=== PATIENT | female | born 1980 | race African-American/Black ===

== ENCOUNTER 2020-03-27 01:02 | Emergency (ER) | payer OTHER, SELFPAY ==
--- NOTE | ~2020-03-27 | CT_ITS ---
EXAMINATION: CTA chest PE abdomen pel DATE: 03/27/2020 03:53 INDICATION: Shortness of breath. Right abdominal pain. TECHNIQUE: Computed tomography angiography (CTA) of the chest was performed with 100 mL Omnipaque-350 intravenous contrast timed to evaluate the pulmonary arteries. Coronal maximum intensity projection 3D-reconstructions were created by the technologist. Computed tomography (CT) of the abdomen and pelv is was performed with intravenous contrast. Automated exposure control and iterative reconstruction t echnique were employed. The dose-length product was 1789.12 mGy-cm. COMPARISON: Ultrasound abdomen 06/07/2018 FINDINGS: CTA chest: The lungs demonstrate moderate dependent atelectasis. No pleural effusion. The heart size is normal. No pericardial effusion. There is no pulmonary embolus. CT abdomen and pelvis: The liver, gallbladder, spleen, pancreas, adrenal glands, and kidneys are norm al. There is a small sliding hernia. There are changes of gastric sleeve procedure. There are no dila caleb loops of bowel. The appendix is normal. There are no pathologically enlarged lymph nodes. There i s no free intraperitoneal fluid. There is expected inflammation/scarring at port sites in the anterio r abdominal wall. There is mild thoracolumbar spondylosis. IMPRESSION: 1. No pulmonary embolus. Sensitivity is mildly decreased by motion artifact and suboptimal contrast o pacification. 2. Small sliding hiatal hernia. Changes of gastric sleeve procedure. Reviewed, dictated and finalized at location A. IMPRESSION: 1. No pulmonary embolus. Sensitivity is mildly decreased by motion artifact and suboptimal contrast opacification. 2. Small sliding hiatal hernia. Changes of gastric sleeve procedure.
[2020-03-27 01:14] VITALS: BP 121/74; PULSE 108; RESP 17; TEMP 37.2; O2SAT 100
--- NOTE | 2020-03-27 01:57 | ECG_ITS ---
Measurements Intervals [place] Rate: 96 P: 47 NH: 151 QRS: 36 QRSD: 82 T: 56 QT: 333 QTc: 421 Interpretive Statements SINUS RHYTHM NONSPECIFIC T-WAVE ABNORMALITY- DIFFUSE LEADS BASELINE ARTIFACT- I, II BORDERLINE ECG Electronically Signed On 03-27-2020 6:43:46 CDT by Yuri Capellan D.O.
[2020-03-27 02:00] VITALS: BP 114/80; PULSE 107; RESP 100; O2SAT 100
--- NOTE | 2020-03-27 02:09 | ED.ABDPAIN ---
HPI - Abdominal Pain General Chief Complaint: Abdominal Pain Stated Complaint: right abd pain s/p surgery 3 wks ago Time Seen by Provider: 03/27/20 02:03 Source: patient Mode of arrival: ambulatory Limitations: no limitations History of Present Illness HPI narrative: This patient is a 39 year old female who presents for evaluation of right side abdominal pain x 2 days. She reports sharp constant pain that has been present for 2 days. She feels the pain more with inspiration. She states she has been taking gas medication without relief. She denies associated nausea, vomiting, fever or chills. She also denies urinary complaints. She had a gastric sleeve procedure at [facility] on 03/04/[address] Jenkins. She was unable to speak with Dr. jenkins yesterday regarding her pain. Onset (ago): day(s) Related Data Home Medications Medication Instructions Recorded Confirmed spironolactone 100 mg tablet 100 mg PO DAILY 08/15/19 03/26/20 Allergies Allergy/AdvReac Type Severity Reaction Status Date / Time No Known Allergies Allergy Verified 03/27/20 01:03 Review of Systems Review of Systems: All systems reviewed & are unremarkable except as noted in HPI and below Constitutional: Constitutional: Denies chills and Denies fever(s) Cardiovascular: Cardiovascular: Denies chest pain Respiratory: Respiratory: Denies cough, Reports dyspnea and Denies wheezing Gastrointestinal: Gastrointestinal: Reports abdominal pain, Denies diarrhea, Denies nausea and Denies vomiting Genitourinary: Genitourinary: Denies hematuria, Denies nocturia and Denies dysuria Musculoskeletal: Musculoskeletal: Reports back pain [facility] Surgical History Surgical History (Updated 03/27/20 @ 04:54 by Zahida Arauz MD) H/O abdominoplasty Status post bariatric surgery Social History Social History Smoking status: Never smoker Second hand tobacco smoke exposure: No Alcohol intake: current Exam Const: General: no acute distress and alert Orientation/consciousness: patient oriented x3 HENMT: Head: normocephalic and atraumatic Face and sinus: face symmetric Throat: uvula midline Eyes: EOM: EOMs intact bilaterally Chest: Chest palpation & inspection: normal inspection of the chest Resp: Effort & Inspection: normal respiratory effort, no retractions and no use of accessory muscles Auscultation: clear to auscultation bilaterally Cardio: Rate: tachycardic Rhythm: regular rhythm Heart sounds: no murmurs GI: GI Palp: Yes Soft to palpation and Yes Tenderness to palpation present (GI) (mild TTP RLQ, no guarding no rebound) Skin: General skin exam: normal color Rashes: no rashes Psych: Mental Status: mental status grossly normal Affect: normal affect Course Reevaluation(s) Reevaluation #1: I have discussed with patient that her CT did not show any acute findings other than atelectasis. She will start incentive spirometer and follow up with doctor. I discussed if any discrepancy on CT found she will be notified when radiologist perform final reading Date: 03/27/20 Time: 04:49 Vital Signs Vital signs: Vital Signs Temperature 99.0 F 03/27/20 01:14 Pulse Rate 108 H 03/27/20 01:14 Respiratory Rate 17 03/27/20 01:14 Blood Pressure 121/74 03/27/20 01:14 Pulse Oximetry 100 03/27/20 01:14 Temperature 99.0 F 03/27/20 01:14 Pulse Rate 98 03/27/20 05:23 Respiratory Rate 17 03/27/20 05:23 Blood Pressure 117/78 03/27/20 05:23 Pulse Oximetry 99 03/27/20 05:23 MDM - Abdominal Pain Lab Data Attestation: I reviewed the patient's lab results. Result diagrams: 03/27/20 02:21 03/27/20 02:21 Labs: Lab Results 03/27/20 03/27/20 03/27/20 Range/Units 02:21 02:21 02:21 WBC 7.8 (4.5-10.0) K/mm3 RBC 4.05 L (4.2-5.4) M/mm3 Hgb 11.5 L (12.0-15.0) g/dL Hct 34.5 L (37.0-47.0) % MCV 85.2 (80-1
[2020-03-27 02:29] LABS: Basophils Absolute Auto 0.1 K/mm3 (0.0-0.1); Basophils Percent Auto 0.8 % (0.2-1.2); Eosinophils Absolute Auto 0.1 K/mm3 (0-0.3); Eosinophils Percent Auto 1.3 % (0-4.4); Hematocrit 34.5 % (37.0-47.0); Hemoglobin 11.5 g/dL (12.0-15.0); Immature Granulocyte Absolute 0.03 K/mm3 (0.00-0.031); Immature Granulocyte Percent A 0.4 % (0-0.5); Lymphocytes Absolute Auto 1.63 K/mm3 (0.9-3.2); Lymphocytes Percent Auto 20.9 % (18.3-44.2); Mean Corpuscular HGB Conc 33.3 g/dl (32-36); Mean Corpuscular Hemoglobin 28.4 pg (26-34); Mean Corpuscular Volume 85.2 fl (80-100); Mean Platelet Volume 9.7 fl (7.4-10.4); Monocytes Absolute Auto 0.6 K/mm3 (0.1-0.6); Monocytes Percent Auto 7.9 % (2.6-8.5); Neutrophils Absolute Auto 5.4 K/mm3 (1.3-6.7); Neutrophils Percent Auto 68.7 % (45.5-73.1); Platelet Count Result 345 k/mm3 (150-375); Red Blood Count 4.05 M/mm3 (4.2-5.4); Red Cell Distribution Width 14.1 % (11.5-14.5); White Blood Count 7.8 K/mm3 (4.5-10.0)
[2020-03-27 02:35] LABS: Add Urine Microscopic? YES; Appearance Urine Clear (Clear); Bilirubin Urine Negative (Negative); Blood Urine 1+ (Negative); Color Urine Yellow (Yellow); Glucose Urine UA Negative (Negative); Ketones Urine Negative (Negative); Leukocyte Esterase Ur Negative LEU/UL (Negative); Mucus Urine Heavy /lpf; Nitrate Urine Negative (Negative); Protein Urine Negative (Negative); Squamous Epithelial Cell Urine Occasional /hpf (Few); Urobilinogen Urine Negative mg/dL (<2.0)
[2020-03-27 02:39] LABS: INR 1.1; Prothrombin Time 13.5 Seconds (11.1-14.7)
[2020-03-27 02:40] LABS: Partial Thromboplastin Time 31.5 SECONDS (22.3-36.8)
[2020-03-27] MEDS: LACTATED RINGERS 1,000 ML 999 ML IV CONT (02:51)
[2020-03-27 02:55] LABS: Alanine Aminotransferase 23 U/L (4-35); Albumin Level 4.1 g/dL (3.5-5.1); Alkaline Phosphatase 83 U/L (38-126); Anion Gap 7 mmol/L (8-16); Aspartate Amino Transferase 25 U/L (14-36); Bilirubin,Total 0.5 mg/dL (0.2-1.3); Blood Urea Nitrogen 10 mg/dL (7-17); Carbon Dioxide 27 mmol/L (22-30); Chloride 102 mmol/L (98-107); Estimated CRCL calculation 116 ml/min; Estimated Glomerular Filt Rate > 60; Glucose 107 mg/dL (65-105); Lactic Acid Reflex 0.6 mmol/L (0.7-2.1); Lipase 102 U/L (23-300); Potassium 3.7 mmol/L (3.4-5.0); Sodium 136 mmol/L (137-145)
[2020-03-27 02:58] LABS: Specific Grav Ur 1.031 (1.001-1.035)
[2020-03-27 05:23] VITALS: BP 117/78; PULSE 98; RESP 17; O2SAT 99
== END 2020-03-27 05:25 | disposition home or self-care (01) ==
PROVIDERS: Emergency Provider General Practice; PCP Family Medicine
DX: R10.9 Unspecified abdominal pain (principal); J98.11 Atelectasis; Z98.84 Bariatric surgery status; R94.31 Abnormal electrocardiogram [ECG] [EKG]
CPT/HCPCS: 36415; 71275; 74177; 80053; 81001; 81025; 83605; 83690; 85025; 85610; 85730; 93005; 96360; 99284; J7120; Q9967

== ENCOUNTER 2021-08-06 18:03 | Emergency (ER) | payer BC, SELFPAY ==
[2021-08-06 18:12] VITALS: BP 133/78; PULSE 116; RESP 16; TEMP 37.4; O2SAT 99
[2021-08-06 18:18] VITALS: BP 133/78; PULSE 116; RESP 16; TEMP 37.4; O2SAT 99
--- NOTE | 2021-08-06 18:59 | ED.URI ---
HPI - URI/Sore Throat General Chief Complaint: Upper Respiratory Infection Stated Complaint: Cough,Headache Time Seen by Provider: 08/06/21 18:49 Source: patient and RN notes reviewed Mode of arrival: ambulatory Limitations: no limitations History of Present Illness HPI Narrative: Patient presents today complaining of 2-day history of headache, body aches, fatigue, and mild cough. She has had multiple exposures to COVID-19 at work. Denies fever, congestion, rhinorrhea, sore throat, nausea, vomiting, diarrhea. She has tried no medication for symptoms prior to arrival. MD elicited complaint: other (Headache, body aches) Related Data Home Medications Medication Instructions Recorded Confirmed spironolactone 100 mg tablet 100 mg PO DAILY 08/15/19 03/26/20 drospirenone-ethinyl estradiol 1 tablet PO DAILY 08/06/21 08/06/21 [Dorinda] levothyroxine [Synthroid] 08/06/21 valacyclovir 500 mg PO DAILY 08/06/21 08/06/21 Allergies Allergy/AdvReac Type Severity Reaction Status Date / Time No Known Allergies Allergy Verified 08/06/21 18:11 Review of Systems Review of Systems: CONSTITUTIONAL: Denies fever, chills, or sweats.+ Body aches, fatigue EYES: Denies visual changes, redness, or discharge. ENT: Denies rhinorrhea, congestion, sore throat, or otalgia. CARDIOVASCULAR: Denies chest pain, palpitations, or edema. RESPIRATORY: Denies dyspnea.+ Cough GASTROINTESTINAL: Denies abdominal pain, nausea, vomiting, or diarrhea. GENITOURINARY: Denies dysuria or hematuria. SKIN: Denies rash, itching, or wounds. MUSCULOSKELETAL: Denies back pain, joint pain, or myalgia. NEUROLOGIC: Denies numbness, tingling, or weakness.+ Headache PSYCH: Denies depression or anxiety. [facility] Surgical History Surgical History H/O abdominoplasty Status post bariatric surgery Family History Family History Father Hypertension Family history of diabetes mellitus in first degree relative Mother Hypertension Family history of diabetes mellitus in first degree relative Other Family history of gout Family history of malignant neoplasm Family history of thyroid disease Social History Social History Smoking status: Never smoker Second hand tobacco smoke exposure: No Alcohol intake: current Comments At time of signature, I have reviewed and agree with nursing past medical, surgical, social and family history unless otherwise noted. Please see nursing chart for further information. There is no relevant family history pertinent to the presenting complaint Exam Narrative: GENERAL: Well-appearing, well-nourished, and in no acute distress. HEAD: Normocephalic, atraumatic. EYES: EOMI. No redness or drainage. Conjunctivae normal. ENT: Mucous membranes pink and moist. Nares clear. No rhinorrhea. TMs normal bilaterally. Throat normal. Uvula midline. NECK: Normal AROM. Supple. No lymphadenopathy. CHEST: No respiratory distress. Clear to auscultation. HEART: Regular rate and rhythm. No murmur appreciated. Normal peripheral pulses. EXTREMITIES: Normal range of motion. No edema. SKIN: Warm, dry, no rash. Capillary refill normal. Normal skin turgor. NEURO: No focal deficits. Alert and oriented x3. Gait steady. PSYCH: Normal affect. No signs of depression or anxiety. Course Course Level of Care: Express Care Visit Vital Signs Vital signs: Vital Signs Temperature 99.3 F 08/06/21 18:12 Pulse Rate 116 H 08/06/21 18:12 Respiratory Rate 16 08/06/21 18:12 Blood Pressure 133/78 08/06/21 18:12 Pulse Oximetry 99 08/06/21 18:12 Temperature 99.3 F 08/06/21 18:18 Pulse Rate 116 H 08/06/21 18:18 Respiratory Rate 16 08/06/21 18:18 Blood Pressure 133/78 08/06/21 18:18 Pulse Oximetry 99 08/06/21 18:18 Reviewed. Pt has been instru
== END 2021-08-06 19:05 | disposition home or self-care (01) ==
PROVIDERS: Emergency Provider Nurse Practitioner; PCP Family Medicine
DX: B34.9 Viral infection, unspecified (principal); Z20.822 Contact with and (suspected) exposure to COVID-19; Z98.84 Bariatric surgery status; K21.9 Gastro-esophageal reflux disease without esophagitis; E03.9 Hypothyroidism, unspecified
CPT/HCPCS: 87426; 99213; C9803; G0463

== ENCOUNTER 2021-08-14 09:20 | Outpatient (CLI) | payer BC, SELFPAY ==
--- NOTE | ~2021-08-14 | XR_ITS ---
XR chest 2V DATE: 08/14/2021 09:36 INDICATION: Chest pain TECHNIQUE: PA and lateral views COMPARISON: 04/23/2020 CTA chest abdomen pelvis FINDINGS: Normal heart size. No hilar or mediastinal enlargement. No pulmonary infiltrate or consolid ation, pleural effusion or pulmonary vascular congestion or pneumothorax. Surgical clips, right upper quadrant, suggesting cholecystectomy. Thoracolumbar scoliosis. IMPRESSION: No active cardiopulmonary disease Reviewed, dictated and finalized at location A. 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
--- NOTE | 2021-08-14 09:43 | ECG_ITS ---
Measurements Intervals [place] Rate: 76 P: 67 ID: 142 QRS: 53 QRSD: 73 T: 49 QT: 375 QTc: 422 Interpretive Statements SINUS RHYTHM WITH SINUS ARRHYTHMIA BASELINE ARTIFACT- I, II, III, AVR, AVL, AVF NORMAL ECG Electronically Signed On 08-14-2021 9:59:50 FITTER TACKER by Yuri Capellan D.O.
== END 2021-08-14 09:21 | disposition home or self-care (01) ==
LOC: ANHIMG 09:23
PROVIDERS: PCP Family Medicine; Visit Provider Nurse Practitioner Family
DX: Z01.818 Encounter for other preprocedural examination (principal); I49.9 Cardiac arrhythmia, unspecified
CPT/HCPCS: 71046; 93005

== ENCOUNTER 2021-09-21 07:25 | Outpatient (CLI) | payer BC, SELFPAY ==
--- NOTE | ~2021-09-21 | MM_ITS ---
EXAMINATION: MM screening silvia BI w bebeto HISTORY: Baseline screening mammogram TECHNIQUE: Craniocaudal and mediolateral oblique 3-D tomosynthesis images were obtained and synthetic 2-D images were generated. CAD analysis was submitted and interpreted. COMPARISON: None, baseline BREAST PARENCHYMAL COMPOSITION: There are scattered areas of fibroglandular density. FINDINGS: There is no evidence of suspicious mass, calcification, or architectural distortion to sugg est malignancy in either breast. IMPRESSION: 1. No mammographic evidence of malignancy. 2. Recommend routine screening mammography in one year. BI-RADS Category 1: Negative Reviewed, dictated and finalized at location A. 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
== END 2021-09-21 07:26 | disposition home or self-care (01) ==
LOC: ANHIMG 07:26
PROVIDERS: PCP Family Medicine; Visit Provider Nurse Practitioner Family
DX: Z12.31 Encounter for screening mammogram for malignant neoplasm of breast (principal)
CPT/HCPCS: 77063; 77067

== ENCOUNTER → 2021-11-07 00:21 | Outpatient (CLI) | payer BC, SELFPAY ==
[2021-11-07 11:55] LABS: SARS-CoV-2 RNA PCR Negative
== END ==
PROVIDERS: PCP Family Medicine; Visit Provider Family Medicine
DX: Z41.9 Encounter for procedure for purposes other than remedying health state, unspecified (principal); Z20.822 Contact with and (suspected) exposure to COVID-19
CPT/HCPCS: C9803; U0003; U0005

== ENCOUNTER 2022-03-09 10:34 | Outpatient (CLI) | payer BC, SELFPAY ==
--- NOTE | ~2022-03-09 | XR_ITS ---
EXAMINATION: XR ankle LT min 3V DATE: 03/09/2022 10:52 INDICATION: Left ankle pain TECHNIQUE: Anteroposterior, lateral, mortise, and additional oblique view of the ankle were obtained. COMPARISON: None. FINDINGS: Bone alignment is normal. There is no fracture. A plantar calcaneal enthesophyte is noted. IMPRESSION: 1. No acute osseous abnormality. Reviewed, dictated and finalized at location A.
== END 2022-03-09 10:35 ==
LOC: MICIMG 10:37
PROVIDERS: PCP Nurse Practitioner Family; Visit Provider Nurse Practitioner Family
DX: M25.572 Pain in left ankle and joints of left foot (principal)
CPT/HCPCS: 73610

== ENCOUNTER 2022-09-11 18:39 | Emergency (ER) | payer OTHER, SELFPAY ==
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
[2022-09-11 18:44] VITALS: BP 158/106; PULSE 112; RESP 18; TEMP 37; O2SAT 100
--- NOTE | 2022-09-11 19:30 | PC.NURSE ---
First encounter w/ pt. Pt resting comfortably in bed, c-collar continued, updated pt on plan of care.
--- NOTE | 2022-09-11 19:52 | ECG_ITS ---
Measurements Intervals [place] Rate: 91 P: 40 CO: 120 QRS: 14 QRSD: 79 T: 1 QT: 335 QTc: 413 Interpretive Statements SINUS RHYTHM WITH SINUS ARRHYTHMIA BASELINE ARTIFACT MINIMAL VOLTAGE CRITERIA FOR LVH, CONSIDER NORMAL VARIANT NONSPECIFIC T-WAVE ABNORMALITY BORDERLINE ECG COMPARED TO ECG 08/14/2021 09:55:07 T-WAVE ABNORMALITY NOW PRESENT Electronically Signed On 09-12-2022 14:41:47 FAMILY MEMBER CARETAKER by Arron Sarabia M.D.
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
[2022-09-11] MEDS: methocarbamoL 750 MG TABLET 1500 MG PO (20:26)
[2022-09-11] MEDS: ACETAMINOPHEN 500 MG TABLET 1000 MG PO (20:26)
[2022-09-11 21:26] VITALS: BP 131/79; PULSE 77; RESP 18; TEMP 36.6; O2SAT 99
== END 2022-09-11 21:26 | disposition home or self-care (01) ==
PROVIDERS: Emergency Provider Emergency Medicine; PCP Family Medicine
DX: S39.92XA Unspecified injury of lower back, initial encounter (principal); R07.89 Other chest pain; E78.2 Mixed hyperlipidemia; E55.9 Vitamin D deficiency, unspecified; Z98.84 Bariatric surgery status; R94.31 Abnormal electrocardiogram [ECG] [EKG]; V49.40XA Driver injured in collision with unspecified motor vehicles in traffic accident, initial encounter
CPT/HCPCS: 70450; 71045; 72170; 93005; 99284; A9270

== ENCOUNTER 2023-09-22 16:28 | Emergency (ER) | payer BC, SELFPAY ==
[2023-09-22 16:39] VITALS: BP 135/87; PULSE 119; RESP 18; TEMP 38.7; O2SAT 100
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
== END 2023-09-22 17:15 | disposition home or self-care (01) ==
PROVIDERS: Emergency Provider Nurse Practitioner; PCP Family Medicine
DX: U07.1 COVID-19 (principal); R01.1 Cardiac murmur, unspecified; E78.2 Mixed hyperlipidemia; E55.9 Vitamin D deficiency, unspecified
CPT/HCPCS: 87426; 87804; 99213; G0463

== ENCOUNTER 2024-04-12 15:33 | Outpatient (CLI) | payer OTHER, SELFPAY ==
--- NOTE | ~2024-04-12 | MM_ITS ---
EXAMINATION: MM screening silvia BI w bebeto HISTORY: Screening mammogram TECHNIQUE: Craniocaudal and mediolateral oblique 3-D tomosynthesis images were obtained and synthetic 2-D images were generated. CAD analysis was submitted and interpreted. COMPARISON: 09/21/2021 BREAST PARENCHYMAL COMPOSITION:Not Dense. There are scattered areas of fibroglandular density. FINDINGS: No suspicious mass, calcification, or architectural distortion are identified in either dago ast to suggest malignancy. There has been no suspicious interval change. IMPRESSION: No mammographic evidence of malignancy. Recommend routine screening mammography in one year. BI-RADS Category 1: Negative Reviewed, dictated and finalized at location .
== END 2024-04-12 15:34 | disposition home or self-care (01) ==
LOC: ANHIMG 15:34
PROVIDERS: PCP Family Medicine; Visit Provider Nurse Practitioner Family
DX: Z12.31 Encounter for screening mammogram for malignant neoplasm of breast (principal)
CPT/HCPCS: 77063; 77067

== ENCOUNTER 2024-05-16 08:55 | Outpatient (CLI) | payer OTHER, SELFPAY ==
--- NOTE | ~2024-05-16 | XR_ITS ---
XR shoulder LT min 2V Ordering provider: Blessing Krause NP History: . M54.2 - Cervicalgia . Comparison: None. FINDINGS: BONES: No acute fracture or dislocation. JOINT SPACES: The acromioclavicular joint is normal. The glenohumeral joint is normal. SOFT TISSUES: Normal. IMPRESSION: No acute osseous abnormality left shoulder. Reviewed, dictated and finalized at location A.
--- NOTE | ~2024-05-16 | XR_ITS ---
[id number] Ordering provider: Blessing Krause NP History: . M54.2 - Cervicalgia . Comparison: None. FINDINGS: VERTEBRAL BODIES: Normal height and alignment. No visible fracture or subluxation. The dens is intact . DISK SPACES: Narrowing of the disc C4-C5 is (. PARASPINOUS SOFT TISSUES: No prevertebral soft tissue swelling. IMPRESSION: No acute osseous abnormality cervical spine. Multilevel degenerative disc disease . Reviewed, dictated and finalized at location A.
== END 2024-05-16 08:56 | disposition home or self-care (01) ==
LOC: MICIMG 08:56
PROVIDERS: PCP Family Medicine
DX: M25.512 Pain in left shoulder (principal); M50.30 Other cervical disc degeneration, unspecified cervical region
CPT/HCPCS: 72040; 73030

== ENCOUNTER 2024-07-31 17:45 | Emergency (ER) | payer OTHER, SELFPAY ==
[2024-07-31 18:02] VITALS: BP 120/74; PULSE 103; RESP 16; TEMP 37.6; O2SAT 100
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
== END 2024-07-31 18:57 | disposition home or self-care (01) ==
PROVIDERS: Emergency Provider Nurse Practitioner Family; PCP Family Medicine
DX: M54.50 Low back pain, unspecified (principal); R01.1 Cardiac murmur, unspecified; E78.2 Mixed hyperlipidemia; E55.9 Vitamin D deficiency, unspecified; Z86.16 Personal history of COVID-19
CPT/HCPCS: 99213; G0463

== ENCOUNTER 2025-06-04 00:44 | Day surgery (SDC) | payer OTHER, SELFPAY ==
[2025-05-23 09:50] VITALS: BMI 26.4
--- OUTSIDE RECORDS SUMMARY | 2025-06-04 00:46 | XMS_ITS | Clinical Summary ---
Author Organization [facility] Address [address] [place] [address] Care Team Providers Care Clinical Nursing Manager Name Role Phone Unavailable Primary Care Provider Unavailabl e Source Comments [facility],non-owned Affiliates and Associated Physician Practices is amultiple site organization consisting of ambulatory clinics and hospital sitesin [place], [place], [place] and [place]. This disclosure is being madepursuant to the Care Everywhere program and may not contain all information available regarding this patient. Last updated 18.[facility] Social History Tobacco Use Types Packs/Day Years Used Date Smoking Tobacco: Never Assessed Comments Unknown Sex and Gender Information Value Date Recorded Sex Assigned at Not on file Legal Sex Female 12:00 PM CDT Gender Identity Not on file Sexual Orientation Not on file Plan of Treatment Health Maintenance Due Date Last Done Comments COLOGUARD (AGES 45-75) - COL ON CA SCREENING 1979 COLON MONITORING 1979 COLONOSCOPY - COLON CA SCREENING 1979 CT COLONOGRAPHY - COLON CA SCREENING 1979 Colorectal Cancer Screening 1979 FIT - COLON CA SCREENING 1979 FLEX SIG - COLON CA SCREENING 1979 LIPID TESTING 1979 MAMMOGRAM 1979 HIV SCREENING 1994 HEPATITIS C SCREENING 05/24/1997 DTAP/TDAP/TD VACCINES (1 - Tdap) 1998 HEPATITIS B VACCINE (1 of 3 - 19+ 3-dose series) 1998 DEPRESSION SCREENING 07/25/2024 COVID-19 VACCINE ( - 2023-2 5 season) 2025 INFLUENZA VACCINE (#1) 2025 ZOSTER VACCINE (1 of 2) 2029 HIB VACCINE Aged Out No longer eligi ble based on patient's age to complete this topic HPV VACCINE Aged Out No longer eligi ble based on patient's age to complete this topic MENINGOCOCCAL (Group B) VACC INE SHARED DECISION-MAKING Aged Out No longer eligibl e based on patient's age to complete this topic MENINGOCOCCAL GROUPS A/C/Y/W VACCINE Aged Out No longer eligible b ased on patient's age to complete this topic PNEUMOCOCCAL VACCINE Aged Out No long er eligible based on patient's age to complete this topic
--- OUTSIDE RECORDS SUMMARY | 2025-06-04 00:46 | XMS_ITS | Clinical Summary ---
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 09/22/2019 Active DULoxetine (CYMBALTA) 60 mg Capsule, Delayed Release(E.C.) Take 60 mg by mouth daily. 08/16/2019 Active ergocalciferol, vitamin D2, (VITAMIN D ORAL) Take 2 Capsules by mouth daily. Active omeprazole (PriLOSEC) 40 mg Capsule, Delayed Release(E.C.) Take 1 Capsule (40 mg) by mouth daily. 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 Gender Identity Not on file Sexual Orientation Not on file Last Filed Vital Signs Vital Sign Reading Time Taken Comments Blood Pressure 132/83 03/05/2020 12:00 PM CDT Pulse 77 03/05/2020 12:00 PM CDT Temperature 37.1 C (98.8 F) 03/05/2020 12:00 PM CDT Respiratory Rate 20 03/05/2020 5:49 AM CDT Oxygen Saturation 97% 03/05/2020 5:49 AM CDT Inhaled Oxygen Concentration - - Weight 88.9 kg (196 lb) 03/04/2021 2:15 PM CDT Height 165.1 cm (5' 5) 03/04/2021 2:15 PM CDT Body Mass Index 32.62 03/04/2021 2:15 PM CDT Plan of Treatment Health Maintenance Due Date Last Done Comments Pre-Diabetes and Diabetes Screening 1979 DTAP/TDAP/TD VACCINES (1 - Tdap) 1998 HEPATITIS B VACCINES (1 of 3 - 19+ 3-dose series) 1998 HPV/Cotest (21-29) 2000 HPV/Cotest (30-65) 2009 BREAST CANCER SCREENING 2019 CERVICAL CANCER SCREENING 11/06/2023 PAP SMEAR 11/06/2023 11/05/2020 COLORECTAL SCREENING 2024 Colorectal Cancer Screening 2024 FIT-DNA Q 3 years 2024 FIT/FOBT Q 1 year 2024 Flex Sig/CT Colonography Q 5 years 2024 INFLUENZA VACCINE (#1) 2025 HPV VACCINES Aged Out No longer eligi ble based on patient's age to complete this topic Medical Devices Implanted Type Area Cannery Worker Device Identifier Shelf Expiration Date Model / Serial / Lot Endo Clip Ii 10mm [id number] - [id number] Implanted:Qty : 1 on 03/04/2020 by Villa Rawls DO at [facility] Clip N/A: Abdomen [employer] - [employer]EN [id number] 11/21/2024 [id number] / / [id number] Insurance [facility] BLUE ACCESS/TRUE BLUE PPO RX [employer] PLANS (INTERNAL) [facility] Advance Directives For more information, please contact: [phone] * Full Code (Latest Code Status on File) Date Activated Date Inactivated Comments 03/04/2020 4:42 PM 03/05/2020 4:11 PM * Full Code Date Activated Date Inactivated Comments 03/04/2020 10:53 AM 03/04/2020 4:42 PM Care Teams Machinist Mechanic Relationship Specialty Start Date End Date Ferny Doll MD [address] [place] [address] PCP - General Family Practice 02/14/20
--- OUTSIDE RECORDS SUMMARY | 2025-06-04 00:46 | XMS_ITS | Data Portability ---
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 Patient will come back in a year unless there are new symptoms. [email or web address] Not available 01/25/2024 10:12:37 01/29/2025 01/29/2025 Annual gynecological exam performed. Patient will come back in a year unless there are new symptoms. [email or web address] Not available 01/29/2025 09:41:07 Plan of Treatment Reminders Order Date Submit Date Provider Last Modified By Organization Details Last Modified Time Details Appointments None recorded. Lab hbcab (hepatitis B core Ab) igm, serum [address] [facility] (Lab), [address], [place], [address], 16:16:53 HBsAg (hepatitis B surface Ag), serum [address] [facility] (Lab), [address], [place], [address], 16:16:52 hepatitis C virus Ab, serum [address] [facility] (Lab), [address], [place], [address], 5 16:16:52 HIV 1+2 AB + HIV 1 p24 Ag, qualitative immunoassay , serum [address] [facility] (Lab), [address], [place], [address], 5 16:16:51 RPR (rapid plasma reagin), serum [address] [facility] (Lab), [address], [place], [address], 5 16:16:52 pap, IG + HR HPV - HPV regardless but if HPV is positive need subtyping 16,18/45 add gc/ct/trich [address] [facility] (Lab), [address], [place], [address], 5 16:16:53 hbcab (hepatitis B core Ab) igm, serum [address] [facility] (Lab), [address], [place], [address], 4 12:15:08 HBsAg (hepatitis B surface Ag), serum [address] [facility] (Lab), [address] [facility], [place], [address], 4 12:15:06 hepatitis C virus Ab, serum [address] [facility] (Lab), [address], [place], [address], 4 12:15:07 HIV 1+2 AB + HIV 1 p24 Ag, qualitative immunoassay , serum [address] [facility] (Lab), [address], [place], [address], 4 12:15:07 RPR (rapid plasma reagin), serum [address]23 [facility] (Lab), [address], [place], [address], 4 12:15:08 Referral gastroenter ologist referral [address] - Gastroenterol ogy, [address], [address], [place], [address], 5 10:12:00 Procedures None recorded. Surgeries None recorded. Imaging MAMMO, screening, digital, bilateral 2024 [facility], [address], [address], [place], [address], 5 04:02:10 MAMMO, screening, digital, bilateral 2023 024 [facility], [address], [address], [place], [address], 5 05:01:26 Medication Orders valacyclovi r 500 mg tablet 2024 025 [id number], [address], [place], [id number], 5 10:09:35 Slynd 4 mg (28) tablet 2024 [id number], [address], [place], [id number], 5 10:10:05 valacyclovi r 500 mg tablet 2023 024 [facility], [facility], [place], [address], 4 11:39:48 estradiol 0.01% (0.1 mg/gram) vaginal cream 2023 [address] [place] [address] [facility], [address] [place], [address], 5 09:42:30 Slynd 4 mg (28) tablet 2023 024 [facility], [address] [place], [address], 4 11:40:48 metronidazo le 500 mg tablet 2022 024 [facility] [place], [address], 4 10:15:23 estradiol 0.01% (0.1 mg/gram) vaginal cream [address] [facility] [address] [place], [address], 5 09:42:30 Patient TargetsNo targets recorded. Patient InstructionsNo instructions recorded. 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 for Referral Director Career Referral for Screening for malignant neoplasm of colon Referring Physician: Rosalie Momin RESIN FILTERER, Encounter Date: 01/29/2025 Results Created Date Observation Date Name Description Value Unit Range Abnormal Flag Note LastModifiedBy Organization Detail LastModifiedTime 05/06/2005/06/2023 CT/GC AND TRICH OMONA S VAGIN MARICEL (RRNA ), SWAB chlamydia trachomatis, PCR Negati ve negati ve Not Available [facility] (Lab) [address], [place], [address], 05/09/2023 10:26:55 05/06/20 23 05/06/2023 CT/GC AND TRICH OMONA S VAGIN MARICEL (RRNA ), SWAB neisseria gonorrhoeae, PCR Negati ve negati ve Not Available [facility] (Lab) [address], [place], [address], 05/09/2023 10:26:55 05/06/20 23 05/06/2023 CT/GC AND TRICH OMONA S VAGIN MARICEL (RRNA ), SWAB trichomonas vaginalis ribosomal RNA (rrna) Negati ve negati ve Not Available [facility] (Lab) [address] [facility], [place], [address], 05/09/2023 10:26:55 05/06/20 23 05/06/2023 VAGIN ITIS/ VAGIN OSIS, DNA PROBE cherelle sp. detection, direct probe Negati ve negati ve Not Available [facility] (Lab) [address] [facility], [place], [address], 05/09/2023 10:26:56 05/06/2005/06/2023 VAGIN ITIS/ VAGIN OSIS, DNA PROBE gardnerella vag. detection, direct probe Negati ve negati ve Not Available [facility] (Lab) [address] [facility], [place], [address], 05/09/2023 10:26:56 05/06/20 23 05/06/2023 VAGIN ITIS/ VAGIN OSIS, DNA PROBE trichomonas vag. detection, direct probe Negati ve negati ve Not Available [facility] (Lab) [address] [facility], [place], [address], 05/09/2023 10:26:56 01/25/20 24 01/25/2024 HEPAT ITIS B SURFA CE ANTIG EN hepatitis B surface antigen Non-re active non-re active This assay was perfo rmed using [employer] ratio n reage nts and test kits. Value s obtai payal with other assay metho ds or kits canno t be used inter mark eably . Not Available [facility] (Lab) [address] [facility], [place], [address], 01/27/2024 12:15:06 01/25/20 24 01/25/2024 HEPAT ITIS C ANTIB EWA SCREE N, REFLE X TO CONFI RMATI ON hepatitis C antibody Non-re active non-re active Antib odies to HCV Not Detec caleb, does not exclu de the possi bilit y of expos ure to HCV. Not Available [facility] (Lab) [address] [facility], [place], [address], 01/27/2024 12:15:07 01/25/20 24 01/25/2024 HIV 1/2 ANTIG EN/AN TIBOD Y, REFLE X CONFI RMATI ON HIV antigen/anti body Nonrea ctive nonrea ctive HIV-1 antig en and HIV-1 /HIV- 2 antib odies were not detec caleb. No labor atory evide nce of HIV infec tion. Not Available [facility] (Lab) [address] [facility], [place], [address], 01/27/2024 12:15:07 01/25/20 24 01/25/2024 RPR SCREE N, REFLE X TITER /CONF IRMAT ION RPR screen Nonrea ctive nonrea ctive Not Available [facility] (Lab) [address] [facility], [place], [address], 01/27/2024 12:15:08 01/25/20 24 01/25/2024 HEPAT ITIS B CORE, IGM hepatitis B core IgM antibody Non-re active non-re active IgM anti- HBc not detec caleb. Does not exclu de the possi bilit y of expos ure to or infec tion with HBV. Not Available [facility] (Lab) [address] [place], [address], 01/27/2024 12:15:08 01/25/20 24 01/25/2024 IMAGE GUIDE D PAP AND HPV REGAR DLESS image guided Pap, HPV regardless of Pap result SEE RESULT S BELOW CASE REPOR T: Cytol ogy Gynec ologi gary Repor t Case: [id number] Autho nanette g Provi selena: Rosalie Momin, JUDE Colle cted: 01/24 0944 Order ing Locat ion: [place] [facility] Recei michele: 07/05 /2024 [address] n: Adan Robbins , [place] Rescr een: Torrie Burnett Speci men: Dhiraj gann Pap - Image d, Cervi x STATE MENT OF ADEQU ACY: Satis facto ry for evalu ation Trans forma tion zone compo nent absen t The absen ce of an endoc ervic al compo nent was confi rmed by an addit ional scree ner. ----- ----- ----- ----- ----- ----- ----- ----- ----- ----- ----- ----- ----- ----- ----- ----- ----- ---- FINAL DIAGN OSIS: Negat sunny for Intra epith elial Lesio n or Gloria melo ([facility]) . Elect gera lawton alfonso d by Torrie Burnett on 024 at 8:56 PM ----- ----- ----- ----- ----- ----- ----- ----- ----- ----- ----- ----- ----- ----- ----- ----- ----- ---- HPV RESUL TS: HPV mRNA E6/E7 : No HPV mRNA Detec caleb NOTE: This high risk HPV mRNA assay detec ts fourt een high- risk HPV types (16, 18, 31, 33, 35, 39, 45, 51, 52, 56, 58, 59, 66, 68) witho ut diffe renti ation . COMME NT: This speci men was revie wed by a Cytot echno logis t and/o r Patho logis t (as indic ated in this repor t) after evalu ation using the Thinp rep Imagi ng Syste m. CLINI GARY INFOR MATIO N: Menst rual Statu s: LMP (if appli cable ): Clini gary Histo ry/Pr eviou s Pap: Type of Neopl ramírez (if appli cable ): Signi fican t Clini gary Findi ngs: Other Histo ry: Hormo heath (if appli cable ): PAP EDUCA MELISSA L NOTE: The Pap Test is a scree azeem test with an inher ent false negat sunny rate. Liqui d-bas ed sampl ing may decre ase, but will not elimi angy, false negat sunny resul ts. A negat sunny resul t does not precl ude the prese nce and/o r devel opmen t of disea se, since the prese nce of abnor mal cells in the sampl e depen ds on the locat ion of the lesio n and sampl ing techn ique. Sesar nued regul ar scree azeem is the best metho d of cance r preve ntion . If repor caleb cytol ogic findi ng do not corre late with physi gary and/o r histo rical findi ngs, furth er inves tigat ion is recom azam d, as clini moy warra nted. Not Available [facility] (Lab) [address] [facility], [place], [address], 01/30/2024 22:00:05 01/25/20 24 01/25/2024 TRICH OMONA S VAGIN MARICEL (RRNA ) trichomonas vaginalis ribosomal RNA (rrna) Negati ve negati ve Not Available [facility] (Lab) [address] [facility], [place], [address], 01/30/2024 22:00:06 01/25/20 24 01/25/2024 CT/GC (BREEZY) , THINP REP VIAL chlamydia trachomatis, PCR Negati ve negati ve Not Available [facility] (Lab) [address] [place], [address], 01/30/2024 22:00:06 01/25/20 24 01/25/2024 CT/GC (BREEZY) , THINP REP VIAL neisseria gonorrhoeae, PCR Negati ve negati ve Not Available [facility] (Lab) [address] [place], [address], 01/30/2024 22:00:06 05/03/20 24 05/03/2024 HEPAT ITIS C ANTIB EWA SCREE N, REFLE X TO CONFI RMATI ON hepatitis C antibody Non-re active non-re active Antib odies to HCV Not Detec caleb, does not exclu de the possi bilit y of expos ure to HCV. Not Available [facility] (Lab) [address], [place], [address], 05/04/2024 14:19:13 05/03/2005/03/2024 HEPAT ITIS B SURFA CE ANTIG EN hepatitis B surface antigen Non-re active non-re active This assay was perfo rmed using [employer] ratio n reage nts and test kits. Value s obtai payal with other assay metho ds or kits canno t be used inter mark eably . Not Available [facility] (Lab) [address], [place], [address], 05/04/2024 14:19:14 05/03/20 24 05/03/2024 HIV 1/2 ANTIG EN/AN TIBOD Y, REFLE X CONFI RMATI ON HIV antigen/anti body Nonrea ctive nonrea ctive HIV-1 antig en and HIV-1 /HIV- 2 antib odies were not detec caleb. No labor atory evide nce of HIV infec tion. Not Available [facility] (Lab) [address], [place], [address], 05/04/2024 14:19:14 05/03/20 24 05/03/2024 HERPE S SIMPL EX VIRUS TYPE 2 SPECI FIC AB, IGG herpes simplex virus 2 IgG Positi ve negati ve abnormal Not Available [facility] (Lab) [address], [place], [address], 05/04/2024 14:19:14 05/03/20 24 05/03/2024 HERPE S SIMPL EX VIRUS TYPE 2 SPECI FIC AB, IGG herpes simples virus 2 IgG, quant 6.9 ai 0.0-0. 8 high Not Available [facility] (Lab) [address] [facility], [place], [address], 05/04/2024 14:19:14 05/03/20 24 05/03/2024 HEPAT ITIS B CORE, IGM hepatitis B core IgM antibody Non-re active non-re active IgM anti- HBc not detec caleb. Does not exclu de the possi bilit y of expos ure to or infec tion with HBV. Not Available [facility] (Lab) [address] [facility], [place], [address], 05/04/2024 14:19:15 05/03/20 24 05/03/2024 RPR SCREE N, REFLE X TITER /CONF IRMAT ION RPR screen Nonrea ctive nonrea ctive Not Available [facility] (Lab) [address] [facility], [place], [address], 05/04/2024 14:19:15 05/03/20 24 05/03/2024 CT/GC AND TRICH OMONA S VAGIN MARICEL (RRNA ), SWAB chlamydia trachomatis, PCR Negati ve negati ve Not Available [facility] (Lab) [address] [facility], [place], [address], 05/04/2024 15:51:56 05/03/20 24 05/03/2024 CT/GC AND TRICH OMONA S VAGIN MARICEL (RRNA ), SWAB neisseria gonorrhoeae, PCR Negati ve negati ve Not Available [facility] (Lab) [address] [facility], [place], [address], 05/04/2024 15:51:56 05/03/20 24 05/03/2024 CT/GC AND TRICH OMONA S VAGIN MARICEL (RRNA ), SWAB trichomonas vaginalis ribosomal RNA (rrna) Negati ve negati ve Not Available [facility] (Lab) [address] [facility], [place], [address], 05/04/2024 15:51:56 01/30/20 01/29/2025 HIV 1/2 ANTIG EN/AN TIBOD Y, REFLE X CONFI RMATI ON HIV antigen/anti body Nonrea ctive nonrea ctive HIV-1 antig en and HIV-1 /HIV- 2 antib odies were not detec caleb. No labor atory evide nce of HIV infec tion. Not Available [facility] (Lab) [address] [facility], [place], [address], 02/01/2025 16:16:51 01/30/2001/29/2025 HEPAT ITIS B SURFA CE ANTIG EN hepatitis B surface antigen Non-re active non-re active This assay was perfo rmed using [employer] ratio n reage nts and test kits. Value s obtai payal with other assay metho ds or kits canno t be used inter mark eably . Not Available [facility] (Lab) [address] [facility], [place], [address], 02/01/2025 16:16:52 01/30/2001/29/2025 HEPAT ITIS C ANTIB EWA SCREE N, REFLE X TO CONFI RMATI ON hepatitis C antibody Non-re active non-re active Antib odies to HCV Not Detec caleb, does not exclu de the possi bilit y of expos ure to HCV. Not Available [facility] (Lab) [address] [place], [address], 02/01/2025 16:16:52 01/30/2001/29/2025 RPR SCREE N, REFLE X TITER /CONF IRMAT ION RPR qualitative Nonrea ctive nonrea ctive Not Available [facility] (Lab) [address] [place], [address], 02/01/2025 16:16:52 01/30/2001/29/2025 HEPAT ITIS B CORE, IGM hepatitis B core IgM antibody Non-re active non-re active Antib odies to Hepat itis B Core IgM not detec caleb. Does not exclu de the possi bilit y of expos ure to or infec tion with HBV. Corre late with other Hepat itis B serol ogies . Not Available [facility] (Lab) [address], [place], [address], 02/01/2025 16:16:53 01/30/20 25 01/29/2025 IMAGE GUIDE D PAP AND HPV REGAR DLESS image guided Pap, HPV regardless of Pap result SEE RESULT S BELOW abnormal CASE REPOR T: Cytol ogy Gynec ologi gary Repor t Case: [id number] Autho nanette ritter Provi selena: Rosalie Momin, DINING ROOM TABLES SET UP ATTENDANT Colle cted: 01/29 1405 Order ing Locat ion: [place] [facility] Recei michele: 01/30 0227 First Lilae n: Luna Cantrell, CT Patho logis t: Herman Rachel MD Speci men: Dhiraj gann Pap - Image d, Cervi x STATE MENT OF ADEQU ACY: Satis facto ry for evalu ation Trans forma tion zone compo nent absen t ----- ----- ----- ----- ----- ----- ----- ----- ----- ----- ----- ----- ----- ----- ----- ----- ----- ---- FINAL DIAGN OSIS: Epith elial Cell Abnor malit y, Squam ous Cell: Atypi gary Squam ous Cells of Undet ermin ed Arjun whitman ce (ASC- [place]). Elect gera rosas by Herman Rachel MD on 2024 at 1512 CDT ----- ----- ----- ----- ----- ----- ----- ----- ----- ----- ----- ----- ----- ----- ----- ----- ----- ---- HPV RESUL TS: HPV mRNA E6/E7 : Posit sunny - HPV mRNA Detec caleb HPV GENOT YPE 16 (BREEZY) : Not Detec caleb HPV GENOT YPE 18/45 (BREEZY) : Not Detec caleb NOTE: This high risk HPV mRNA assay detec ts fourt een high- risk HPV types (16, 18, 31, 33, 35, 39, 45, 51, 52, 56, 58, 59, 66, 68) witho ut diffe renti ation . This assay can diffe renti ate HPV 16 from HPV 18/45 , but does not diffe renti ate betwe en HPV 18 and HPV 45. A negat sunny HPV 16, 18/45 genot ype assay resul t does not exclu de the possi bilit y of cytol ogic abnor malit ies or of futur e or under lying SIL 1, SIL 3 or cance r. COMME NT: Slide scree payal manua lly due to rejec tion by the Thinp rep Imagi ng Syste m. CLINI GARY INFOR MATIO N: Menst rual Statu s: LMP (if appli cable ): Clini gary Histo ry/Pr eviou s Pap: Type of Neopl ramírez (if appli cable ): Signi fican t Clini gary Findi ngs: Other Histo ry: Hormo heath (if appli cable ): SUGGE STED FOLLO W-UP: Follo w up as warra nted, based on curre nt guide lines and indiv idual patie nt consi derat ions. Not Available [facility] (Lab) [address], [place], [address], 02/01/2025 16:16:53 01/30/20 25 01/29/2025 CT/GC AND TRICH OMONA S VAGIN MARICEL (RRNA ), THINP REP VIAL CT/GC and trichomonas vaginalis (rrna), thinprep SEE RESULT S BELOW negati ve CHLAM YDIA TRACH OMATI S, PCR: Negat sunny NEISS ERIA GONOR RHOEA E, PCR: Negat sunny TRICH OMONA S VAGIN MARICEL RIBOS OMAL RNA (RRNA ): Negat sunny Not Available [facility] (Lab) [address], [place], [address], 02/01/2025 16:16:53 03/05/20 25 03/05/2025 SURGI GARY PATHO LOGY surgical pathology SEE RESULT S BELOW CASE REPOR T: Surgi gary Patho logy Repor t Case: [id number] Autho nanette riya Provi selena: Joya Campbell MD Colle cted: 03/05 1416 Order ing Locat ion: [place] Patho [place] Recei michele: 03/06 0231 Patho logis t: Herman Rachel MD Speci men: Cervi x, CXBX ----- ----- ----- ----- ----- ----- ----- ----- ----- ----- ----- ----- ----- ----- ----- ----- ----- ---- FINAL DIAGN OSIS: Cervi x, biops y: - Benig n ectoc ervic al mucos aCarli rosas by Herman Rachel MD on 2024 at 1537 CDT ----- ----- ----- ----- ----- ----- ----- ----- ----- ----- ----- ----- ----- ----- ----- ----- ----- ---- CLINI GARY INFOR MATIO N: CERVI GARY HIGH RISK HPV MICRO SCOPI C DESCR IPTIO N: A micro scopi c exami natio n was perfo rmed. A porti on of the testi ng proce ss was perfo rmed at [facility] Medic ine Labor atori es site NMDP1 12. Digit al imagi ng was used in the diagn ostic asses sment of this case. GROSS DESCR IPTIO N: A. Cervi x. The speci men is label ed with the patie nt's name and demog raphi cs only. Recei michele in forma juliette is a 0.3 cm fragm ent of white -zhu tissu e. The entir e speci men is submi tted in one casse tte. Gross ed by Candice Maravilla on Not Available [facility] (Lab) [address] [facility], [place], [address], 03/06/2025 16:41:05 Result Notes None recorded. Problems Name Problem SNOMED Code Status Onset Date Resolution Date Notes Provider Name and Address Organization Details Recorded Time Speciali zed medical examinat ion Completed 201011/04/2020 Routine gynecolo gical examinat ion;Prac jassi ID: 0001 Rebecca Bates [facility] 13:46:03 Screenin g for malignan t neoplasm of cervix Completed 201011/04/2020 Pap Smear;Pr actice ID: 0001 Rebecca Bates [facility] 13:45:59 Adult health examinat ion Completed 201311/04/2020 Routine general medical examinat ion at a health care facility ;Practic e ID: 0001 Rebeccadorinda Bates [facility] 13:45:53 Educatio n about sexually transmit caleb disease preventi on Completed 201411/04/2020 Counseli ng on STD;Carrington rded Elsewher e: No [facility] EHR Exec. Creative Director chele: N Practi ce ID: 0001 Daniel lable Time: 09:30:00 AM Rebecca hugo [facility] 13:45:57 Vaginiti s and vulvovag initis Completed 201411/04/2020 Vaginiti s and vulvovag initis, unspecif ied;Prac jassi ID: 0001 Rebecca hugo, [facility] 13:46:07 Depressi ve disorder [id number] Completed 201411/04/2020 Major depressi ve disorder , single episode, unspecif ied;Prac jassi ID: 0001 Rebecca hugo, [facility] 13:45:55 Acute vaginiti s [id number] Completed 201411/04/2020 Acute vaginiti s;Record ed Elsewher e: No [facility] S ource: EHR Exec. Creative Director chele: N Ayeshati ce ID: 0001 Daniel lable Time: 10:45:00 AM Rebecca hugo, [facility] 13:45:[address] Concept Completed 201611/04/2020 Encntr for general adult medical exam w/o abnormal findings ;Recorde d Elsewher e: No [facility]: EHR Exec. Creative Director chele: N Ayeshati ce ID: 0001 Daniel lable Time: 08:15:00 AM Rebecca hugo, [facility] 13:46:00 Vaginola bial hernia Completed 201711/04/2020 Other specifie d noninfla mmatory disorder s of vagina;P luis fernandotice ID: 0001 Rebecca hugo, [facility] 13:46:[address] Concept Completed 201711/04/2020 Well woman check w/o abnormal finding; Recorded Elsewher e: No Locat ion: [facility] S ource: EHR Exec. Creative Director chele: N Ayeshati ce ID: 0001 Daniel lable Time: 08:45:00 AM Rebecca hugo [facility] 13:46:01 Syphilis test finding [id number] Completed 201711/04/2020 Encounte r for STD screenin g;Record ed Elsewher e: No Locat ion: [facility] S ource: EHR Exec. Creative Director chele: N Sara ce ID: 0001 Daniel luis felipe Time: 08:45:00 AM Rebecca Bates bethel [facility] 13:46:04 Problem Notes None recorded. Procedures Surgical History Date Name Laterality Status Provider Name and Address Organization Details Recorded Time 03/05/20 25 Colposcopy completed Marlon Campbell MD [address], [place], [address], [facility] 03/05/2025 13:19:26 03/05/20 25 Colposcopy completed [facility] 03/05/2025 12:42:50 03/05/20 25 Colposcopy completed [facility] 03/05/2025 12:43:37 01/30/20 25 Date of Last Pap Smear completed [facility] 03/05/2025 12:42:09 04/12/20 24 Date of Last Mammogram completed [facility] 05/03/2024 09:32:15 03/25/19 99 section completed Rebecca Paulo [facility] 11/05/2020 11:24:48 abdominoplasty completed [facility] 01/25/2024 10:17:49 Carpal tunnel surgery completed [facility] 01/25/2024 10:17:56 Imaging Results None recorded. Procedure Notes None recorded. Medical Equipment None Reported. Allergies No known drug allergies Medications Name Sig Start Date Stop Date Status Note LastModified by Organization Details LastModified Time cyclobenz aprine 10 mg tablet TAKE 1 TABLET BY MOUTH THREE TIMES DAILY NEEDED FOR MUSCLE SPASM 01/29 completed Not Available Not Available Not Available prednison e 10 mg tablet TAKE 3 TABLETS BY MOUTH ONCE DAILY FOR JOINT PAIN 05/17 completed Not Available Not Available Not Available trazodone 50 mg tablet TAKE 1 TABLET BY MOUTH ONCE DAILY AT BEDTIME NEEDED FOR INSOMNIA 05/17 completed Not Available Not Available Not Available Diflucan 150 mg tablet take 1 tablet by oral route once 11/04 completed Prescrib ed Elsewher e: No Locat ion: [facility] odify By: ivelisse Ward r DateTime : 04/03/20 18 12:17:06 PM Not Available Not Available Not Available metronida zole 500 mg tablet TAKE 1 TABLET BY MOUTH TWICE DAILY FOR 7 DAYS 01/24 completed Not Available Not Available Not Available phentermi ne 37.5 mg tablet PLEASE SEE ATTACHED FOR DETAILED DIRECTIO NS 01/29 completed Not Available Not Available Not Available valacyclo vir 500 mg tablet TAKE 1 TABLET BY MOUTH DAILY active Not Available Not Available No t Available omeprazol e 40 mg capsule,d elayed release TAKE 1 CAPSULE BY MOUTH ONCE DAILY 05/17 completed Not Available Not Available Not Available Wellbutri n SR 100 mg tablet, 12 hr sustained -release take 1 tablet by oral route 2 times every day 11/05 completed Prescrib ed Elsewher e: No Locat ion: [facility] odify By: gamaliel Ward r DateTime : 06/11/20 15 04:45:00 PM Not Available Not Available Not Available spironola ctone 25 mg tablet take 1 tablet by oral route every day 11/05 completed Prescrib ed Elsewher e: No Locat ion: [facility] odify By: dk tz Teoou nter DateTime : 10/29/19 16 10:30:00 AM Not Available Not Available Not Available levothyro xine 75 mcg tablet TAKE 1 TABLET BY MOUTH DAILY 2024 active Not Available Not Available Not Avai lable oxycodone -acetamin ophen 5 mg-325 mg tablet TAKE 1 TABLET BY MOUTH EVERY 6 HOURS NEEDED FOR PAIN 05/17 completed Not Available Not Available Not Available Metrogel Vaginal 0.75 % (37.5 mg/5 gram) insert 1 applicat orful by vaginal route every day at bedtime 11/05 completed Prescrib ed Elsewher e: No Locat ion: [facility] odify By: ivelisse frederick DateTime : 04/03/20 18 12:17:06 PM Not Available Not Available Not Available methocarb edmund 750 mg tablet TAKE 2 TABLETS BY MOUTH THREE TIMES DAILY 05/03 completed Not Available Not Available Not Available prednison e 50 mg tablet TAKE 1 TABLET BY MOUTH DAILY 01/29 completed Not Available Not Available Not Available sertralin e 25 mg tablet TAKE 1 TABLET BY MOUTH ONCE DAILY 03/05 completed Not Available Not Available Not Available estradiol 0.01% (0.1 mg/gram) vaginal cream Insert 1g vaginall y at bedtime 2 times per week as maintena nce dose 01/29 completed Not Available Not Available Not Available norethind micah (contrace ptive) 0.35 mg tablet 03/05 completed Not Available Not Available Not Available Terazol 7 0.4 % vaginal cream insert 1 applicat orful by vaginal route every day for 7 days at bedtime 01/22 completed Prescrib ed Elsewher e: No Locat ion: [facility] odify By: jose armando bose DateTime : 01/17/20 10:43:54 AM Not Available Not Available Not Available hydroxyzi ne HCl 10 mg tablet TAKE 1 TABLET BY MOUTH THREE TIMES DAILY NEEDED FOR ANXIETY 03/05 completed Not Available Not Available Not Available ondansetr on 4 mg disintegr ating tablet DISSOLVE 1 TABLET UNDER THE TONGUE EVERY 6 HOURS NEEDED FOR NAUSEA / VOMITING 05/17 completed Not Available Not Available Not Available drospiren one 3 mg-ethiny l estradiol 0.03 mg tablet TAKE 1 TABLET BY MOUTH EVERY DAY 05/03 completed Not Available Not Available Not Available amoxicill in 875 mg-potass ium clavulana te 125 mg tablet TAKE 1 TABLET BY MOUTH TWICE DAILY 05/17 completed Not Available Not Available Not Available buspirone 15 mg tablet 2024 active Not Available Not Available Not Avai lable Ortho-Cyc alison (28) 0.25 mg-35 mcg tablet take 1 tablet by oral route every day 03/29 completed Prescrib ed Elsewher e: No [facility] By: moon bose DateTime : 10/28/19 01:38:54 PM Not Available Not Available Not Available nitrofura ntoin monohydra te/macroc rystals 100 mg capsule TAKE 1 CAPSULE BY MOUTH EVERY 12 HOURS MUST TAKE WITH A MEAL/WILLARD D 05/03 completed Not Available Not Available Not Available duloxetin e 30 mg capsule,d elayed release 2024 active Not Available Not Available Not Avai lable duloxetin e 60 mg capsule,d elayed release 03/25 completed Not Available Not Available Not Available levothyro xine 01/24 completed Not Available Not Available Not Available Vitamin D active Not Available Not Zuleika ilable Not Available Nascobal 500 mcg/spray nasal spray 11/05 completed Not Available Not Available Not Available FeroSul 325 mg (65 mg iron) tablet TAKE 1 TABLET BY MOUTH TWICE DAILY 01/24 completed Not Available Not Available Not Available Tirosint 88 mcg capsule take 1 capsule by oral route every day 11/05 completed Prescrib ed Elsewher e: Yes Loca tion: [facility] odify By: edwardo lopez DateTime : 04/10/20 12 08:30:00 AM Not Available Not Available Not Available Probiotic 20 billion cell capsule 11/05 completed Prescrib ed Elsewher e: Yes Loca tion: [facility] odify By: ivelisse frederick DateTime : 04/28/20 17 04:30:00 PM Not Available Not Available Not Available Slynd 4 mg (28) tablet active Not Available Not Available Not Available Wegovy 2.4 mg/0.75 mL subcutane ous pen injector INJECT 2.4 MG (0.75 ML) SUBCUTAN EOUSLY WEEKLY 03/05 completed Not Available Not Available Not Available Wegovy 1.7 mg/0.75 mL subcutane ous pen injector INJECT 1.7 MG (0.75 ML) SUBCUTAN EOUSLY WEEKLY 3 MONTH SUPPLY 01/24 completed Not Available Not Available Not Available Wegovy 1 mg/0.5 mL subcutane ous pen injector INJECT 1MG UNDER THE SKIN ONCE WEEKLY 01/24 completed Not Available Not Available Not Available Wegovy 0.5 mg/0.5 mL subcutane ous pen injector INJECT 0.5 MG (0.5 ML) UNDER THE SKIN ONCE WEEKLY FOR WEEKS 5-8 OF THERAPY 01/24 completed Not Available Not Available Not Available Vitals Date Recorded Body height Body mass index (BMI) Body weight Systolic And Diastolic Provider Name and Address Organization Details Last Updated DateTime 01/25/2024 170.18 cm 24.1 kg/m2 75424.22 g 122/77 mm[Hg] Zofia Boswell [facility] 01/25/2024 10:14:02 Date Recorded Body height Body mass index (BMI) Body weight Systolic And Diastolic Provider Name and Address Organization Details Last Updated DateTime 01/29/2025 170.18 cm 24.6 kg/m2 13575 g 120/82 mm[Hg] Cat Marin [facility] 01/29/2025 09:41:49 Date Recorded Body height Body mass index (BMI) Body weight Systolic And Diastolic Provider Name and Address Organization Details Last Updated DateTime 03/05/2025 170.18 cm 25.1 kg/m2 48745.78 g 121/80 mm[Hg] Leslie [facility] 03/05/2025 12:38:45 Date Recorded Body height Body mass index (BMI) Body weight Systolic And Diastolic Provider Name and Address Organization Details Last Updated DateTime 05/03/2024 170.18 cm 24.7 kg/m2 54282.59 g 122/80 mm[Hg] Leslie [facility] 05/03/2024 09:25:51 Date Recorded Body height Body mass index (BMI) Body weight Systolic And Diastolic Provider Name and Address Organization Details Last Updated DateTime 05/06/2023 170.18 cm 29.1 kg/m2 59446.18 g 101/72 mm[Hg] Ayse Kidd [facility] 05/06/2023 11:01:55 Social History Question Answer Notes LastModified by My Point...Exactly Details LastModified Time Tobacco Smoking Status Never Smoker Rebecca Bates bethel, [facility] 11/05/2020 11:18:54 Are You Blind Or Do You Have Difficulty Seeing? No Information n ot available 05/17/2022 In The 14 Days Before Symptom Onset, Have You Had Close Contact With A Laboratory-confirm ed COVID-19 While That Case Was Ill? No Information n ot available 01/25/2024 In The 14 Days Before Symptom Onset, Have You Had Close Contact With A Person Who Is Under Investigation For COVID-19 While That Person Was Ill? No Information not available 01/25/2024 Have You Been To An Area Known To Be High Risk For COVID-19? No Information not available 01/25/2024 Are You Deaf Or Do You Have Serious Difficulty Hearing? No Information not available 05/17/2022 What Type Of Diet Are You Following? REGULAR Information n ot available 05/17/2022 Do You Have Difficulty Walking Or Climbing Stairs? No Information not available 05/17/2022 Sex: Unknown Functional Status Question Answer Note LastModified by My Point...Exactly Details LastModified Time Are you able to walk independently without assistance or assistive devices? YESWOREST Information not available 05/17/2022 Are you able to care for yourself independently? Yes Information not available 05/17/2022 Do you have difficulty dressing, bathing, grooming, or toileting? No Information not available 05/17/2022 What is your exercise level? Occasional Information not available 05/17/2022 Mental Status None recorded. Family History Relationship Description Onset Age of this Age Resolved Age Notes LastModified by Organization Details LastModified Time Father Diabetes mellitus [email or web address] Not available 2020 11:18:06 Paternal Aunt Malignant neoplasm of ovary Not available 2020 11:18:23 Paternal Grandmother Malignant neoplasm of ovary Not available 2020 11:18:39 Medical History Condition Response Anxiety Disorder Y History of STI Y History of abnormal pap Y Anemia Y Headaches Y Thyroid Problems Y Depression/ depression Y Gynecological History Statement/Question Response Abnormal Pap Yes Date of Last Mammogram 04/12/2024 Date of LMP On BCP's at Conception? Y Was last menstrual period normal N STIs/STDs Yes HPV Vaccine N Colposcopy 03/05/2025 Current Control Method BCPs Are cycles usually normal N Date of Last Colonoscopy Sexually Active? Y Menses Monthly N Date of DEXA bone scan Age of first menstrual cycle 10 Date of Last Pap Smear 01/29/2025 Sexual Problems? N Obstetrics History GPAL:G 2 P 1 0 1 1 Type Value Full Term 1 Induced 1 Living 1 Total 2 Past Encounters Encounter ID Performer Location Encounter Start Date Encounter Closed Date Diagnosis/Indication Diagnosis SNOMED-CT Code Diagnosis ICD10 Code Diagnosis IMO Codes Diagnosis Note [id number] [facility] [address] [address] 11/05/2020 10:30:47 11/05/2020 12:45:03 Gynecologic examination 17014230 Z01.419 Suggested Calcium with Vitamin D 1200-1500m g daily. Recommend to get an annual flu shot in the fall and she could obtain at [facility] or [facility] clinic. Also to obtain TDap vaccinatio n if you have not had one in the last 10 years. Recommend yearly mammograms . Encouraged monthly self breast exams. Encourage safe sexual practices, to use condoms and limit partners if not already in a monogamous relationsh ip. Engage in daily exercise of low impact aerobic exercise 45-60 minutes 4-5 times weekly. Avoid tobacco and illicit drugs as well as using moderation with alcohol intake less than 1-2 8 oz beverages daily. This lifestyle behavior pattern will lead to less health conditions and longer life span. If BMI greater than 25 weight watchers or dietary consult advised. All questions have been answered. Patient appears to understand informatio n, but if you have any questions please call or respond to this email. Genital he rpes simplex 08259586 A60.9 Pt would like to continue daily suppressiv e therapy. [id number] Fiordaliza Yoo CNM [place] [address] [address] 03/25/2021 09:13:20 03/25/2021 09:52:48 Vaginitis 53942596 N76.0 Discussed use of mild soap like dove or ivory, cotton underwear w/out dye, hypoallerg enic detergent, wipe from front to back, avoid tub baths, keep perineum clean and dry, d/c use of baby wipes. Encouraged daily intake of yogurt or womens health probiotic. Internal and external affirm collected. Contracept ion care management 483967079 Z30.9 Pt restarted Ocella on her own. Would like to continue. She has done continuous dosing in the past. I recommend at minimum she take a 7 day break every 3 months for cycle. Pt verbalized understand ing. Consent read and signed. Venereal d isease screening 722127371 Z11.3 STD swab only per patient request. Gynecologi c examination 58887779 Z01.419 Needs order for screening mammogram. [id number] MAUREEN Mcgregor [place] [address] [address] 05/17/2022 09:18:06 05/17/2022 10:59:36 Venereal disease screening 502727208 Z11.3 Sexually t ransmitted infectious disease 6650946 A64 Screening for malignant neoplasm of breast 586436222 Z12.39 Contracept ion care management 351671389 Z30.9 Gynecologi c examination 29288417 Z01.419 Suggested Calcium with Vitamin D 1200-1500m g daily. Patient advised to get an annual flu shot in the fall and she could obtain at [facility] or [facility] take care clinic. Also to obtain TDap vaccinatio n if you have not had one in the last 10 years. Recommend yearly mammograms . Encouraged monthly self breast exams. Encourage safe sexual practices, to use condoms and limit partners if not already in a monogamous relationsh ip. Engage in daily exercise of low impact aerobic exercise 45-60 minutes 4-5 times weekly. Avoid tobacco and illicit drugs as well as using moderation with alcohol intake less than 1-2 8 oz beverages daily. This lifestyle behavior pattern will lead to less health conditions and longer life span. If BMI greater than 25 weight watchers or dietary consult advised. All questions have been answered. Patient appears to understand informatio n, but if you have any questions please call or respond to this email. WWEMedical hx : Anxiety/De pression, Hypothyroi dismBC - OCP, happy with this methodDeni es hx of DVT/PE, HTN, Stroke, SD, cancer, liver diseaseShe does have a hx of migraine with aura and headachesW e discussed progestin only options due to migraine with aura hx Discussed all control options in great detail. Pt would like to start POP. She is aware of the risks and benefits. She has contraindi cations to use of OCP or other estrogen containing hormonal therapy. . She is aware it is not effective for control the first month. She is also aware of the importance of taking at the same time every day. Encouraged use of condoms as the pill does not protect against STD's. Will return in 3 months for med check. Consent was read and signed. Pt verbalized understand ing. Slynd samples given x 3 monthsHx of abnormal pap in 2008, no procedures required per patientPap done today per patient preference STI testing added to papBlood STI testing orderedHx of HSV outbreak 1 year ago - on daily valtrex, she would like to continue with thisMammog roshni order givenPater nal grandmothe r with ovarian cancer in her 70's, genetic testing discussed, Handout givenUTD with PCPRTC in 3 months for med check [id number] MAUREEN Mcgregor [place] [address] [address] 12/01/2022 11:05:44 12/01/2022 13:58:44 Contraception care management 605458038 Z30.9 discussed need for progestero ne only BC due to migraine with aurawants to start slynd Discussed all control options in great detail. Pt would like to start POP. She is aware of the risks and benefits. She has contraindi cations to use of OCP or other estrogen containing hormonal therapy. Pt will start her pills on the first tuesday following the start of her period. She is aware it is not effective for control the first month. She is also aware of the importance of taking at the same time every day. Encouraged use of condoms as the pill does not protect against STD's. Will return in 3 months for med check. Consent was read and signed. Pt verbalized understand ing. samples given, [id number] Expires 4ref ills sent to pharmacy Screening for malignant neoplasm of breast 505595350 Z12.39 mammogram order given Vaginitis 59382405 N76.0 suspect BVvaginiti s panel sentSTI endocervic al testing sentblood STI panel orderedvul [facility] care guidelines discussedr x sent, R/B/A discussed Time spent in visit is a total of 30 mins with at least 50% of visit consisting of counseling and review of plan of care. Venereal d isease screening 786020083 Z11.3 Sexually t ransmitted infectious disease 5321146 A64 [id number] MAUREEN Mcgregor [place] [address],[place] [address] 05/06/2023 10:42:48 05/06/2023 13:51:00 Vaginitis 66849814 N76.0 suspect BVvaginiti s/STI panel sentrx sent, r/b/a revieweddi scussed options for vaginal drynessshe would like to trial vaginal estrogensh e denies any contraindi cations to vaginal estrogenr/ b/a reviewed, rx sentRTC for f/u in 2-3 months Time spent in visit is a total of 40 mins with at least 50% of visit consisting of counseling and review of plan of care. Vaginal dryness 43007173 N89.8 Venereal d isease screening 824530383 Z11.3 [id number] MAUREEN Mcgregor [place] [address],[place] [address] 01/25/2024 10:11:00 01/25/2024 11:46:37 Gynecologic examination 77735727 Z01.419 Z11.51 WWEpap updatedgc/ ct/trich testing sentHIV/He p B&C/Syphil is testing ordered per pt requestmam mogram order givenalix ne labs/PCP It is strongly advised to have an annual flu shot and up can obtain at most pharmacies . If you have not had a TDap shot in the last 10 years you should obtain one as well.Discu ssed with patient & provided with informatio n regarding HPV vaccine if applicable . Encourage safe sexual practices, to use condoms and limit partners if not already in a monogamous relationsh ip.Do monthly self breast exams. Recommend yearly mammograms , BRCA testing is now available for patients with strong genetic history of female cancer. If interested contact the office.Eng age in regular exercise. Avoid tobacco and illicit drugs. This lifestyle behavior pattern will lead to less health conditions and longer life span. If BMI greater than 25 dietary consult advised. Patient received above instructio ns, and questions have been answered. If you have any questions please call or respond to this email. Patient was made aware of the patient portal and may obtain a paper copy of today's plan if desired. Screening for malignant neoplasm of breast 519161630 Z12.39 Venereal d isease screening 558312742 Z11.3 Sexually t ransmitted infectious disease 3384992 A64 Genital he rpes simplex 05181672 A60.9 refills sent, daily suppressiv e therapy, r/b/a reviewed Contracept ion care management 680626968 Z30.9 Vaginal dryness 38427512 N89.8 rx sent for estradiol cream, r/b/a reviewedve g based moisturize r routine discussedm ed check in 3-4 months recommende d Time spent in visit is a total of 30 mins with at least 50% of visit consisting of counseling and review of plan of care. [id number] Marlon Campbell MD [place] [address] [address] 05/03/2024 09:14:42 05/03/2024 10:20:34 Venereal disease screening 602805594 Z11.3 this patient is a 43-year-ol d female with concerns about sexually transmitte d disease exposure. We agreed to sex transmitte d disease testing. A vaginal swab was obtained. The vulva and distal vagina appeared normal. She will give a blood sample for HIV, hepatitis, herpes, and syphilis. We will follow up on these results and contact the patient. I spent more than 20 minutes on the patient's care in total. [id number] MAUREEN Mcgregor [place] [address] [address] 01/29/2025 09:16:10 01/29/2025 10:12:00 Gynecologic examination 13196338 Z01.410 [id number] WWEBC - slynd, refills sent x 12 months, r/b/a reviewedPa p - done today per pt preference STI screen - gc/ct/tric h testing added to papHIV/Hep B&C/Syphil is testing ordered per pt requestMam mogram - order givenColon cancer screening - order given for screening colonoscop yRoutine labs - PCPRTC in 1 yr or sooner if needed Suggested Calcium with Vitamin D daily. Patient advised to get an annual flu shot in the fall and she could obtain at local pharmacy. Also to obtain TDap vaccinatio n if you have not had one in the last 10 years. Recommend yearly mammograms . Encouraged monthly self breast exams. Encourage safe sexual practices, to use condoms and limit partners if not already in a monogamous relationsh ip. Engage in regular exercise. Avoid tobacco and illicit drugs. This lifestyle behavior pattern will lead to less health conditions and longer life span. If BMI greater than 25 dietary consult advised. All questions have been answered. Screening mammography 24 331081 Z12.31 [id number] Screening for malignant neoplasm of colon 141838418 Z12.11 196617 Venereal d isease screening 057026529 Z11.3 77678 Sexually t ransmitted infectious disease 5015674 A64 Herpes simplex 71448569 B00.9 refills sent, r/b/a reviewed Contracept ion care management 803920520 Z30.9 58751294 [id number] Marlon Campbell MD [place] [address] [address] 03/05/2025 11:37:31 03/05/2025 13:28:25 Dysplasia of cervix 54954156 N87.9 50501 aceto-whit e lesion on the anterior lip of the cervix near the transition zone. It was biopsy. She tolerated it well. We will follow up on biopsy Health Concerns Section Related Observation LastModified by Organization Detai ls LastModified Time None Recorded Concern Status LastModified by Organization Details LastModified Time None Recorded Advance Directives Directive None Recorded Payers Insurance Date Sequence Insurance Name Policy Number Policy Trivedi Covered Member ID Trivedi Member ID Guarantor Name 05/25/2025 1 [facility] [id number] Bert Myers [id number] Bert Myers 10/21/2020 1 *SELF PAY* Co rlis Louis 01/28/2025 1 [employer] [id number] Bert Myers [id number] Bert Myers 01/28/2025 1 [employer] [id number] Bert Barkley Louis [id number] Bert Myers Notes Date Note Type Note Provider Name and Address Organization Details Recorded Time 3 text/html Vaginal/Vulvar ProblemReported by Patient 28yopresents for evaluation of vaginal d/c and dryness with ICvaginal d/c on and off, odorsdryness since starting Slynd for BC. Overall happy with slynd but IC is painful. Has been using veg based moisturizers with no improvement.no new partnersneg itchingneg urinary symptomsneg pelvic pain MAUREEN Mcgregor [address], [place], [address], [facility] 05/06/2023 13:37:31 4 text/html Annual GYNReported by PatientGenitourinary symptomsFor menstrual cycle, patient reportsnormal menses. For urinary symptoms, patient reportsno hematuriaandno incontinence. For vulva, patient reportsno genital lesion. For vagina, patient reportsnormal vaginal discharge.Breast symptomsFor breast, patient reportsno breast pain,no breast lump, andno nipple discharge.ContraceptionFo r current contraception, patient reportssatisfied with current contraceptionandoral contraceptives.Endocrine symptomsFor menopausal symptoms, patient reportsinadequacy of lubrication of vaginal mucosabut reportsno menopausal symptoms. For sexual complaints, patient reportsno sexual complaints,no pain during intercourse, andnormal libido.Psychological symptomsFor psychological symptoms, patient reportsno depression,no anxiety, andno pmdd.Preventative measuresFor preventive measures, patient reportsencourage self breast examination,encourage regular exercise,encourage no tobacco use, andencourage regular mammograms starting age 40.44yoWWEBC - slynd, doing well, desires to continue this methodlast pap 2021 : nilm, HPV (-)mammogram : none yet still having dryness with IC, was prescribed estradiol cream but has not started yet daily valtrex for HSV suppression. Desires to continue MAUREEN Mcgregor [address], [place], [address], [facility] 01/25/2024 11:44:32 4 text/html this patient is a 43-year-old female with concerns about sexually transmitted disease exposure. We agreed to sex transmitted disease testing. A vaginal swab was obtained. The vulva and distal vagina appeared normal. She will give a blood sample for HIV, hepatitis, herpes, and syphilis. We will follow up on these results and contact the patient. I spent more than 20 minutes on the patient's care in total. Marlon Campbell MD [address], [place], [address], [facility] 05/03/2024 10:19:53 5 text/html Annual GYNReported by PatientGenitourinary symptomsFor menstrual cycle, patient reportsnormal menses. For urinary symptoms, patient reportsno hematuriaandno incontinence. For vulva, patient reportsno genital lesion. For vagina, patient reportsnormal vaginal discharge.Breast symptomsFor breast, patient reportsno breast pain,no breast lump, andno nipple discharge.ContraceptionFo r current contraception, patient reportssatisfied with current contraceptionandoral contraceptives.Endocrine symptomsFor sexual complaints, patient reportsno sexual complaints,no pain during intercourse, andnormal libido. For menopausal symptoms, patient reportsno menopausal symptomsandnormal vaginal lubrication.Psychological symptomsFor psychological symptoms, patient reportsno depression,no anxiety, andno pmdd.Preventative measuresFor preventive measures, patient reportsencourage self breast examination,encourage regular exercise,encourage no tobacco use, andencourage regular mammograms starting age 40.44yo wweBC - slyndlast pap 01/2024 : nilm, HPV (-)mammogram last 2023no colon cancer screening hxwould like STI testing today takes daily valtrex for HSV, would like to continue Cat hugo, [facility] 01/29/2025 13:15:49 5 text/html 44-year-old female presents for colposcopic examination. The procedure was explained to the patient in detail. She understands the procedure. She understands the risks, benefits, and alternatives. She has completed the informed consent process and is ready to proceed. Marlon Campbell MD [address], [place], [id number], [facility] 03/05/2025 13:23:54 OBGyn Episode Ob Episode Information Episode Created Date Number of Fetuses Patient Bloodtype Patient rh Status Prepregnancy Weight lbs Domestic Partner Domestic Partner Phone Father Name Chemistry Tutor Status 11/06/19 21 1 CLOSED Fetus Data First Name Last Name Admitted to NICU Weight (g) Sex Living Outcome Pediatric Complications Fetus ID Race Codes Race Delivery Type [id number] Primary Jaden Calculation Initial Jaden Date Initial Exam Date Initial Exam Provider Initial Ultrasound Date Last Menstrual Period Date Ultra Sound Weeks Gestation 0 Eighteen To Twenty Week Jaden Update Ultra Sound Date Fundal Height At Umbil Quickening Date Ultra Sound Latest Weeks Gestation Final Jaden Confirmed By Final Jaden Confirmed Date Final Jaden Date Ultra Sound Latest Days Gestation 0 0 Menstrual History Last Menstrual Date Menses Monthly On Bcp Conception Prior Menses Frequency Hcg Plus Date Menarche Onset Age Delivery Information Delivery Date Delivery Type Labor Anesthesia Weeks Gestation Incision Type Labor Labor Length Hrs Delivered By Post Complications Tubal Sterilization Discharge Date Comments 9 Discharge Information Feeding Method Contraceptive Method Maternal HG B and HCT Levels Ob Episode Information Episode Created Date Number of Fetuses Patient Bloodtype Patient rh Status Prepregnancy Weight lbs Domestic Partner Domestic Partner Phone Father Name Chemistry Tutor Status 11/06/19 21 1 CLOSED Fetus Data First Name Last Name Admitted to NICU Weight (g) Sex Living Outcome Pediatric Complications Fetus ID Race Codes Race Delivery Type , Induced [id number] Jaden Calculation Initial Jaden Date Initial Exam Date Initial Exam Provider Initial Ultrasound Date Last Menstrual Period Date Ultra Sound Weeks Gestation 0 Eighteen To Twenty Week Jaden Update Ultra Sound Date Fundal Height At Umbil Quickening Date Ultra Sound Latest Weeks Gestation Final Jaden Confirmed By Final Jaden Confirmed Date Final Jaden Date Ultra Sound Latest Days Gestation 0 0 Menstrual History Last Menstrual Date Menses Monthly On Bcp Conception Prior Menses Frequency Hcg Plus Date Menarche Onset Age Delivery Information Delivery Date Delivery Type Labor Anesthesia Weeks Gestation Incision Type Labor Labor Length Hrs Delivered By Post Complications Tubal Sterilization Discharge Date Comments 1 Discharge Information Feeding Method Contraceptive Method Maternal HG B and HCT Levels
--- OUTSIDE RECORDS SUMMARY | 2025-06-04 00:46 | XMS_ITS | Encounter Summary ---
Author Organization [facility] Address [address] [place] [address] Care Team Providers Care It Applications Analyst Name Role Phone Unavailable Primary Care Provider Unavailabl e Encounter Details Date Type Department Care Team (Late st Contact Info) Description 12/08/2019 Lab Requisition [facility] [address] [place] [address] Social History Tobacco Use Types Packs/Day Years Used Date Smoking Tobacco: Never Assessed Comments Unknown Sex and Gender Information Value Date Recorded Sex Assigned at Not on file Legal Sex Female 12:00 PM CDT Gender Identity Not on file Sexual Orientation Not on file documented as of this encounter Plan of Treatment Not on file documented as of this encounter Procedures Procedure Name Priority Date/Time Associated Diagnosis Comments SARS-COV-2 (COVID-19) IN HOUSE Routine 12/07/2019 9:58 AM CDT documented in this encounter Results * SARS-COV-2 (COVID-19) IN HOUSE (12/07/2019 9:58 AM CDT) COVID-19 PCR Not detected Not detected, Invalid 12/08/2019 9:58 PM CDT [facility] Microbiology SPECIMEN FROM NASOPHARYNGEAL STRUCTURE / Unknown Collection / Unknown 12/07/2019 9:58 AM CDT 12/08/2019 12:01 PM CDT Narrative [facility] - 12/08/2019 9:58 PM CDT This Real Time RT-PCR assay was developed and its performance characteristics determined by [facility]. This test has been authorized by the Food and Drug administration (FDA)under an Emergency Use Authorization (EUA). This test has been validated in accordance with the FDA's guidance document Policy for Diagnostic Testing in Laboratories Certified to perform High Complexity Testing under CLIA prior to Emergency Use Authorization for Coronavirus Disease-2019 during the Public Health Emergency issued on September 22, 2019. FDA independent review of this validation is pending. This test is only authorized for the duration of time the declaration that circumstances exist justifying the authorization of emergency use of in vitro diagnostic tests for detection of SARS-CoV-2 virus and/or diagnosis of COVID-19 infection under section 564(b)(1) of the Act, 21 U.S.C 360bbb-3 (b)(1), unless the authorization is terminated or revoked sooner. us LAB - MICROBIOLOGY ORDERABLES Fi nal Result [facility] [address] [place], [place] [address], [facility] [phone] documented in this encounter Visit Diagnoses Not on filedocumented in this encounter
[2025-06-04 09:02] VITALS: BP 107/79; PULSE 111; RESP 16; TEMP 36.4; O2SAT 100
[2025-06-04 09:07] LABS: BEDSIDEPREGUCG Negative (Negative)
[2025-06-04] MEDS: LACTATED RINGERS 1,000 ML 150 ML IV CONT (09:10)
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
--- NOTE | 2025-06-04 09:51 | P.PNAN_ITS ---
Anes - Eval Final PreProcedure Day of Procedure 06/04/25 09:51 Patient weight: overweight Heart: regular rate and rhythm Lungs: clear to auscultation Airway: Mallampati scale class 1 Neurological: alert and oriented Last oral intake: >/= 8 hours ASA classification: II Emergent: yes Anesthetic plan: proceed Anesthesia type and monitoring: general GIVS and standard monitoring Results Review: All pre-operative results and documents have been reviewed as part of the pre- operative evaluation. Informed Consent: The patient's anesthetic plan and its attendant risks and benefits were discussed with the patient/family/POA. Questions were solicited and answers provided to the satisfaction of the patient/family/POA.
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
[2025-06-04 10:50] VITALS: BP 95/63; PULSE 107; RESP 22; O2SAT 100
[2025-06-04 11:00] VITALS: BP 99/60; PULSE 95; RESP 20; O2SAT 100
[2025-06-04 11:10] VITALS: BP 106/72; PULSE 93; RESP 24; O2SAT 100
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
[2025-06-04 11:20] VITALS: BP 110/72; PULSE 90; RESP 20; O2SAT 100
[2025-06-04] MEDS: DICLOFENAC SODIUM 0.1% OPHTH SOLN 2.5 ML BOTTLE 1 DROP EACH EYE (11:23)
[2025-06-04] MEDS: PROPARACAINE HCL 0.5% 15 ML OPHTH SOLN 1 DROP EACH EYE (11:24)
--- NOTE | 2025-06-04 11:33 | SUR.PHASEII ---
eye gtts given and pts states relief. recommended pt use artificial tears when she gets home if irritation persists or call pcp if needed for further treatment. voiced understanding.
== END 2025-06-04 11:40 | disposition home or self-care (01) ==
PROVIDERS: Anesthesiology; PCP Family Medicine; Visit Provider Surgery
PROC: 0DJD8ZZ Inspection of Lower Intestinal Tract, Via Natural or Artificial Opening Endoscopic (ICD-10-PCS; CPT 45378; principal; 2025-06-04 10:00)
DX: Z12.11 Encounter for screening for malignant neoplasm of colon (principal)
CPT/HCPCS: 45378; A9270; J2003; J2704; J7120